=== PATIENT | male | born 1950 | race African-American/Black ===

== ENCOUNTER 2018-01-09 08:56 | Inpatient (IN) | payer MEDICAID ==
[2018-01-09] VITALS (35 sets, daily range): BP systolic 90–166; BP diastolic 60–97
[~2018-01-09] VITALS: Ht 180.3 cm; Wt 91.2 kg
[~2018-01-09 08:56] MED LIST: ASPI-1159 PO; ATOR40TA70 PO; FERR-43 PO; GABA-531 PO; HYDR-523 PO; INDO-53 PO; LOSA50TA20 PO; NAPR-681 PO; TAMS0.4C31 PO
[2018-01-09 10:01] LABS: BASOPHILS % 0.6 % (0.0-2.0); EOSINOPHILS % 0.7 % (0.0-5.0); HEMATOCRIT. 38.7 % (42.0-52.0); HEMOGLOBIN. 12.4 g/dL (14.0-18.0); LYMPHOCYTES % 11.3 % (20.0-50.0); MEAN CORPUSCULAR HEMOGLOBIN 28.6 pg (28.0-32.0); NEUTROPHILS % 79.4 % (40.0-76.0); PLATELET 209 x1000/uL (130-400); RED BLOOD CELL COUNT 4.35 mill/uL (4.7-6.1); RED CELL DISTRIBUTION WIDTH 14.7 % (11.6-14.6)
[2018-01-09 10:07] LABS: CHLORIDE 112 mEq/L (98-107)
[2018-01-09 11:10] LABS: INR 1.1
[2018-01-09] MEDS ORDERED: PHENYTOIN SODIUM 1,000 MG in SODIUM CHLORIDE 0.9% 100 ML IV ONE (11:15)
[2018-01-09] MEDS ORDERED: NICARDIPINE 50 MG in SODIUM CHLORIDE 0.9% 230 ML IV PRN ×3 (11:30→13:45)
[2018-01-09] MEDS ORDERED: DEXTROSE 5% WATER 1,000 ML IV SCH (11:30)
[2018-01-09] MEDS ORDERED: LORAZEPAM 2MG/ML CPJ IV PRN (11:30)
[2018-01-09 12:44] LABS: CLARITY URINE CLEAR (CLEAR); COLOR URINE YELLOW (YELLOW); KETONES URINE NEGATIVE (NEGATIVE); LEUKOCYTE ESTERASE URINE NEGATIVE (NEGATIVE); NITRITE URINE NEGATIVE (NEGATIVE); OCCULT BLOOD URINE NEGATIVE (NEGATIVE); PH URINE 5.5 (4.5-8.0); PROTEIN URINE 2+ (NEGATIVE); SPECIFIC GRAVITY URINE 1.023 (1.005-1.030)
[2018-01-09 13:06] LABS: *BENZODIAZEPINES SCREEN URINE PRESUMTIVE POSITIVE (NEGATIVE); *COCAINE SCREEN URINE NEGATIVE (NEGATIVE); METHADONE URINE SCREEN NEGATIVE (NEGATIVE); OPIATES URINE SCREEN NEGATIVE (NEGATIVE)
[2018-01-09 13:07] LABS: *AMPHETAMINES SCREEN URINE NEGATIVE (NEGATIVE); *BARBITURATES SCREEN URINE NEGATIVE (NEGATIVE); CANNABINOID URINE SCREEN NEGATIVE (NEGATIVE); PHENCYCLIDINE URINE SCREEN NEGATIVE (NEGATIVE)
[2018-01-09] MEDS ORDERED: CHOL100044 PO (14:07)
[2018-01-09] MEDS ORDERED: LOSA100T14 PO (14:07)
[2018-01-09] MEDS ORDERED: ETOMIDATE 2MG/ML 10ML VIAL IV ONE (14:13)
[2018-01-09] MEDS ORDERED: SUCCINYLCHOLINE CHLORIDE 200MG/10ML VIAL IV ONE (14:13)
[2018-01-09] MEDS ORDERED: IPRATROPIUM/ALBUTEROL 0.5-3(2.5)MG/3ML NEB HHN PRN (15:00)
[2018-01-09] MEDS ORDERED: NOREPINEPHRINE 16 MG in DEXT 5% WATER 234 ML IV PRN (15:00)
[2018-01-09 15:52] LABS: BG BASE EXCESS 0.4 mmol/L (-2.0-2.0); BG CARBOXYHEMOGLOBIN 0.5 % (0.5-1.5); BG DEOXYHEMOGLOBIN 0.4 % (0.0-5.0); BG FRACTION INSPIRED OXYGEN 100; BG HCO3 ACT 28.6 mmol/L (22.0-26.0); BG METHEMOGLOBIN 0.4 % (0.0-1.5); BG OXYGEN SATURATION 99.6 % (92.0-98.5); BG OXYHEMOGLOBIN 98.7 % (94.0-97.0); BG PCO2 62.6 mmHg (35.0-45.0); BG PH 7.277 (7.350-7.450); BG PO2 382.6 mmHg (75.0-100.0); BG SAMPLE SITE LEFT RADIAL; BG TIDAL VOLUME(mL) 500 mL; BG TOTAL HEMOGLOBIN 12.9 g/dL (12.0-18.0); BG VENT MODE VENT - A/C; BG VENT RATE 12 set
[2018-01-09] MEDS: PROPOFOL 10MG/ML 100ML 100 ML IV PRN ×2 (16:16→20:57)
[2018-01-09] MEDS: DEXT 5%/LACTATED RINGERS 1,000 ML IV SCH (16:18)
[2018-01-09] MEDS: CEFEPIME 2,000 MG in DEXT 5% WATER 100 ML IV SCH (16:28)
[2018-01-09] MEDS: BLOOD SUGAR DIAGNOSTIC STRIP TEST SCH ×2 (16:30→20:58)
[2018-01-09] MEDS ORDERED: DEXTROSE 50% WATER 50ML SYRINGE IV PRN (16:30)
[2018-01-09] MEDS: BUDESONIDE 0.5MG/2ML NEB HHN SCH (16:48)
[2018-01-09] MEDS: IPRATROPIUM/ALBUTEROL 0.5-3(2.5)MG/3ML NEB HHN SCH ×2 (16:49→21:23)
[2018-01-09] MEDS: INSULIN LISPRO 100 UNITS/ML SUBCUT SCH ×2 (17:00→21:08)
[2018-01-09] MEDS: DEXAMETHASONE 4MG/ML 1ML VIAL IV SCH (17:48)
[2018-01-09] MEDS: METRONIDAZOLE 500 MG PREMIX 100 ML IV SCH ×2 (17:48→21:09)
[2018-01-09] MEDS: NICARDIPINE 100 MG in SODIUM CHLORIDE 0.9% 60 ML IV PRN (19:49)
[2018-01-09] MEDS: PHENYTOIN SODIUM 100MG/2ML VIAL IV SCH (21:22)
[2018-01-10] VITALS (95 sets, daily range): BP systolic 104–148; BP diastolic 48–84
[2018-01-10] MEDS: DEXAMETHASONE 4MG/ML 1ML VIAL IV SCH ×5 (00:07→23:41)
[2018-01-10] MEDS: PROPOFOL 10MG/ML 100ML 100 ML IV PRN (00:08)
[2018-01-10] MEDS: IPRATROPIUM/ALBUTEROL 0.5-3(2.5)MG/3ML NEB HHN SCH ×3 (02:40→20:28)
[2018-01-10] MEDS: NICARDIPINE 100 MG in SODIUM CHLORIDE 0.9% 60 ML IV PRN ×2 (04:41→17:10)
[2018-01-10] MEDS: METRONIDAZOLE 500 MG PREMIX 100 ML IV SCH ×3 (05:03→21:57)
[2018-01-10] MEDS: CEFEPIME 2,000 MG in DEXT 5% WATER 100 ML IV SCH ×2 (05:04→17:40)
[2018-01-10] MEDS: PHENYTOIN SODIUM 100MG/2ML VIAL IV SCH ×3 (05:04→21:57)
[2018-01-10 05:20] LABS: HEMATOCRIT. 35.4 % (42.0-52.0); HEMOGLOBIN. 11.6 g/dL (14.0-18.0); MEAN CORPUSCULAR VOLUME 88.4 fL (80.0-94.0); MEAN PLATELET VOLUME 9.5 fl (7.4-10.4); PLATELET 223 x1000/uL (130-400); RED BLOOD CELL COUNT 4.01 mill/uL (4.7-6.1); RED CELL DISTRIBUTION WIDTH 14.6 % (11.6-14.6)
[2018-01-10 05:30] LABS: CHLORIDE 108 mEq/L (98-107)
[2018-01-10] MEDS: BLOOD SUGAR DIAGNOSTIC STRIP TEST SCH ×4 (06:00→21:57)
[2018-01-10] MEDS: INSULIN LISPRO 100 UNITS/ML SUBCUT SCH ×4 (06:02→21:58)
[2018-01-10] MEDS: BUDESONIDE 0.5MG/2ML NEB HHN SCH ×2 (08:00→20:27)
[2018-01-10] MEDS: PANTOPRAZOLE SODIUM 40 MG/VIAL IV SCH (08:30)
[2018-01-10 08:54] LABS: PLATELET ESTIMATE NORMAL
[2018-01-10] MEDS: DEXT 5%/LACTATED RINGERS 1,000 ML IV SCH ×2 (10:34→23:42)
[2018-01-10] MEDS: INSULIN GLARGINE UD 100 UNITS/ML SYR SUBCUT SCH ×2 (10:53→21:59)
[2018-01-10 11:02] LABS: BG BASE EXCESS 0.4 mmol/L (-2.0-2.0); BG CARBOXYHEMOGLOBIN 0.3 % (0.5-1.5); BG DEOXYHEMOGLOBIN 1.9 % (0.0-5.0); BG FRACTION INSPIRED OXYGEN 50; BG HCO3 ACT 25.2 mmol/L (22.0-26.0); BG METHEMOGLOBIN 1.2 % (0.0-1.5); BG OXYGEN SATURATION 98.1 % (92.0-98.5); BG OXYHEMOGLOBIN 96.6 % (94.0-97.0); BG PCO2 41.3 mmHg (35.0-45.0); BG PH 7.404 (7.350-7.450); BG PO2 128.6 mmHg (75.0-100.0); BG SAMPLE SITE LEFT RADIAL; BG TIDAL VOLUME(mL) 500 mL; BG VENT MODE VENT - A/C; BG VENT RATE 16 set
[2018-01-10] MEDS: MORPHINE SULFATE 4 MG/ML CPJ (NOT FOR IM USE) IV PRN ×2 (11:10→23:22)
[2018-01-11] VITALS (87 sets, daily range): BP systolic 97–150; BP diastolic 58–121
[2018-01-11] MEDS: IPRATROPIUM/ALBUTEROL 0.5-3(2.5)MG/3ML NEB HHN SCH ×4 (01:51→19:58)
[2018-01-11 05:30] LABS: HEMATOCRIT. 33.8 % (42.0-52.0); HEMOGLOBIN. 11.1 g/dL (14.0-18.0); MEAN CORPUSCULAR HEMOGLOBIN 29.1 pg (28.0-32.0); MEAN CORPUSCULAR VOLUME 88.5 fL (80.0-94.0); MEAN PLATELET VOLUME 9.4 fl (7.4-10.4); PLATELET 236 x1000/uL (130-400); RED BLOOD CELL COUNT 3.82 mill/uL (4.7-6.1); RED CELL DISTRIBUTION WIDTH 14.8 % (11.6-14.6)
[2018-01-11] MEDS: PHENYTOIN SODIUM 100MG/2ML VIAL IV SCH ×3 (05:31→21:17)
[2018-01-11] MEDS: DEXAMETHASONE 4MG/ML 1ML VIAL IV SCH ×4 (05:31→23:45)
[2018-01-11] MEDS: CEFEPIME 2,000 MG in DEXT 5% WATER 100 ML IV SCH ×2 (05:32→17:11)
[2018-01-11] MEDS: METRONIDAZOLE 500 MG PREMIX 100 ML IV SCH ×3 (05:32→21:23)
[2018-01-11 05:34] LABS: CHLORIDE 110 mEq/L (98-107)
[2018-01-11] MEDS: BLOOD SUGAR DIAGNOSTIC STRIP TEST SCH ×4 (05:46→21:13)
[2018-01-11] MEDS ORDERED: BISACODYL 10MG SUPP PR SCH (06:45)
[2018-01-11] MEDS: INSULIN LISPRO 100 UNITS/ML SUBCUT SCH ×4 (06:54→21:22)
[2018-01-11 07:44] LABS: BG BASE EXCESS 0.2 mmol/L (-2.0-2.0); BG DEOXYHEMOGLOBIN 3.7 % (0.0-5.0); BG HCO3 ACT 25.6 mmol/L (22.0-26.0); BG METHEMOGLOBIN 0.2 % (0.0-1.5); BG OXYGEN SATURATION 96.3 % (92.0-98.5); BG OXYHEMOGLOBIN 96.1 % (94.0-97.0); BG PCO2 44.8 mmHg (35.0-45.0); BG PH 7.375 (7.350-7.450); BG PO2 86.8 mmHg (75.0-100.0); BG SAMPLE SITE RIGHT RADIAL; BG TIDAL VOLUME(mL) 500 mL; BG TOTAL HEMOGLOBIN 12.2 g/dL (12.0-18.0); BG VENT MODE VENT - A/C; BG VENT RATE 16 set
[2018-01-11] MEDS: NICARDIPINE 100 MG in SODIUM CHLORIDE 0.9% 60 ML IV PRN ×2 (07:49→23:17)
[2018-01-11] MEDS: PANTOPRAZOLE SODIUM 40 MG/VIAL IV SCH (08:38)
[2018-01-11 09:02] LABS: PLATELET ESTIMATE NORMAL
[2018-01-11] MEDS: INSULIN GLARGINE UD 100 UNITS/ML SYR SUBCUT SCH ×2 (10:00→21:23)
[2018-01-11] MEDS: BUDESONIDE 0.5MG/2ML NEB HHN SCH (19:57)
[2018-01-11] MEDS: MORPHINE SULFATE 4 MG/ML CPJ (NOT FOR IM USE) IV PRN ×2 (20:08→23:46)
[2018-01-11] MEDS: DEXT 5%/LACTATED RINGERS 1,000 ML IV SCH (23:46)
[2018-01-12] VITALS (93 sets, daily range): BP systolic 106–156; BP diastolic 31–103
[2018-01-12] MEDS: IPRATROPIUM/ALBUTEROL 0.5-3(2.5)MG/3ML NEB HHN SCH ×4 (02:36→20:39)
[2018-01-12 05:24] LABS: HEMATOCRIT. 36.1 % (42.0-52.0); HEMOGLOBIN. 11.7 g/dL (14.0-18.0); MEAN CORPUSCULAR HEMOGLOBIN 28.6 pg (28.0-32.0); MEAN CORPUSCULAR VOLUME 88.6 fL (80.0-94.0); MEAN PLATELET VOLUME 9.4 fl (7.4-10.4); PLATELET 235 x1000/uL (130-400); RED BLOOD CELL COUNT 4.08 mill/uL (4.7-6.1); RED CELL DISTRIBUTION WIDTH 14.6 % (11.6-14.6)
[2018-01-12] MEDS: PHENYTOIN SODIUM 100MG/2ML VIAL IV SCH ×3 (05:24→22:13)
[2018-01-12] MEDS: DEXAMETHASONE 4MG/ML 1ML VIAL IV SCH ×3 (05:24→18:07)
[2018-01-12] MEDS: CEFEPIME 2,000 MG in DEXT 5% WATER 100 ML IV SCH ×2 (05:25→18:07)
[2018-01-12] MEDS: BLOOD SUGAR DIAGNOSTIC STRIP TEST SCH ×4 (05:41→21:00)
[2018-01-12 05:45] LABS: CHLORIDE 114 mEq/L (98-107)
[2018-01-12] MEDS: INSULIN LISPRO 100 UNITS/ML SUBCUT SCH ×4 (06:44→21:00)
[2018-01-12] MEDS: METRONIDAZOLE 500 MG PREMIX 100 ML IV SCH ×3 (06:51→22:12)
[2018-01-12] MEDS: NICARDIPINE 100 MG in SODIUM CHLORIDE 0.9% 60 ML IV PRN ×3 (07:56→22:17)
[2018-01-12] MEDS: PANTOPRAZOLE SODIUM 40 MG/VIAL IV SCH ×2 (07:56→22:13)
[2018-01-12 08:25] LABS: BG BASE EXCESS 0.6 mmol/L (-2.0-2.0); BG CARBOXYHEMOGLOBIN 0.7 % (0.5-1.5); BG DEOXYHEMOGLOBIN 3.8 % (0.0-5.0); BG FRACTION INSPIRED OXYGEN 30; BG HCO3 ACT 24.9 mmol/L (22.0-26.0); BG METHEMOGLOBIN 0.3 % (0.0-1.5); BG OXYGEN SATURATION 96.2 % (92.0-98.5); BG OXYHEMOGLOBIN 95.2 % (94.0-97.0); BG PCO2 38.9 mmHg (35.0-45.0); BG PH 7.424 (7.350-7.450); BG PO2 84.2 mmHg (75.0-100.0); BG SAMPLE SITE RIGHT RADIAL; BG TIDAL VOLUME(mL) 500 mL; BG TOTAL HEMOGLOBIN 12.4 g/dL (12.0-18.0); BG VENT MODE VENT - A/C; BG VENT RATE 156 set
[2018-01-12] MEDS: BUDESONIDE 0.5MG/2ML NEB HHN SCH (09:05)
[2018-01-12] MEDS: DEXT 5%/LACTATED RINGERS 1,000 ML IV SCH (10:55)
[2018-01-12] MEDS: INSULIN GLARGINE UD 100 UNITS/ML SYR SUBCUT SCH ×2 (10:57→22:15)
[2018-01-12 11:55] LABS: PLATELET ESTIMATE NORMAL
[2018-01-12 15:36] LABS: BG BASE EXCESS -0.1 mmol/L (-2.0-2.0); BG CARBOXYHEMOGLOBIN 0.3 % (0.5-1.5); BG CPAP (cmH2O) 0 cm(H2O); BG DEOXYHEMOGLOBIN 4.9 % (0.0-5.0); BG HCO3 ACT 25.2 mmol/L (22.0-26.0); BG METHEMOGLOBIN 0.2 % (0.0-1.5); BG OXYGEN SATURATION 95.1 % (92.0-98.5); BG OXYHEMOGLOBIN 94.6 % (94.0-97.0); BG PCO2 43.5 mmHg (35.0-45.0); BG PO2 78.5 mmHg (75.0-100.0); BG SAMPLE SITE RIGHT RADIAL; BG TOTAL HEMOGLOBIN 12.7 g/dL (12.0-18.0); BG VENT MODE VENT - CPAP
[2018-01-13] VITALS (80 sets, daily range): BP systolic 101–153; BP diastolic 32–85
[2018-01-13] MEDS: DEXAMETHASONE 4MG/ML 1ML VIAL IV SCH ×4 (01:02→19:35)
[2018-01-13] MEDS: IPRATROPIUM/ALBUTEROL 0.5-3(2.5)MG/3ML NEB HHN SCH ×4 (02:01→20:50)
[2018-01-13] MEDS: DEXT 5%/LACTATED RINGERS 1,000 ML IV SCH ×2 (03:35→20:15)
[2018-01-13] MEDS: NICARDIPINE 100 MG in SODIUM CHLORIDE 0.9% 60 ML IV PRN ×2 (04:51→15:37)
[2018-01-13 05:40] LABS: HEMATOCRIT. 35.7 % (42.0-52.0); HEMOGLOBIN. 11.7 g/dL (14.0-18.0); MEAN CORPUSCULAR VOLUME 88.2 fL (80.0-94.0); MEAN PLATELET VOLUME 9.2 fl (7.4-10.4); PLATELET 231 x1000/uL (130-400); RED BLOOD CELL COUNT 4.04 mill/uL (4.7-6.1); RED CELL DISTRIBUTION WIDTH 14.8 % (11.6-14.6)
[2018-01-13] MEDS: CEFEPIME 2,000 MG in DEXT 5% WATER 100 ML IV SCH ×2 (05:44→19:35)
[2018-01-13] MEDS: METRONIDAZOLE 500 MG PREMIX 100 ML IV SCH ×3 (05:44→21:48)
[2018-01-13] MEDS: PHENYTOIN SODIUM 100MG/2ML VIAL IV SCH ×3 (05:45→21:47)
[2018-01-13 05:50] LABS: CHLORIDE 116 mEq/L (98-107)
[2018-01-13] MEDS: BLOOD SUGAR DIAGNOSTIC STRIP TEST SCH ×4 (05:53→21:35)
[2018-01-13] MEDS: INSULIN LISPRO 100 UNITS/ML SUBCUT SCH ×4 (05:55→21:47)
[2018-01-13] MEDS ORDERED: BISACODYL 10MG SUPP PR PRN (08:00)
[2018-01-13 08:24] LABS: BG BASE EXCESS -2.3 mmol/L (-2.0-2.0); BG CARBOXYHEMOGLOBIN 0.9 % (0.5-1.5); BG DEOXYHEMOGLOBIN 3.5 % (0.0-5.0); BG FRACTION INSPIRED OXYGEN 30; BG HCO3 ACT 22.2 mmol/L (22.0-26.0); BG METHEMOGLOBIN 0.3 % (0.0-1.5); BG OXYGEN SATURATION 96.5 % (92.0-98.5); BG OXYHEMOGLOBIN 95.3 % (94.0-97.0); BG PCO2 37.5 mmHg (35.0-45.0); BG PO2 89.1 mmHg (75.0-100.0); BG SAMPLE SITE RIGHT RADIAL; BG TIDAL VOLUME(mL) 500 mL; BG TOTAL HEMOGLOBIN 13.7 g/dL (12.0-18.0); BG VENT MODE VENT - A/C; BG VENT RATE 12 set
[2018-01-13] MEDS: PANTOPRAZOLE SODIUM 40 MG/VIAL IV SCH ×2 (09:07→21:46)
[2018-01-13] MEDS: INSULIN GLARGINE UD 100 UNITS/ML SYR SUBCUT SCH ×2 (09:09→21:49)
[2018-01-13 09:51] LABS: PLATELET ESTIMATE NORMAL
[2018-01-13 14:51] LABS: BG BASE EXCESS 0.7 mmol/L (-2.0-2.0); BG CARBOXYHEMOGLOBIN 0.3 % (0.5-1.5); BG DEOXYHEMOGLOBIN 4.2 % (0.0-5.0); BG FRACTION INSPIRED OXYGEN 30; BG HCO3 ACT 26.3 mmol/L (22.0-26.0); BG METHEMOGLOBIN 0.6 % (0.0-1.5); BG OXYGEN SATURATION 95.8 % (92.0-98.5); BG OXYHEMOGLOBIN 94.9 % (94.0-97.0); BG PCO2 45.9 mmHg (35.0-45.0); BG PH 7.376 (7.350-7.450); BG PO2 86.8 mmHg (75.0-100.0); BG PRESSURE SUPPORT 8; BG SAMPLE SITE RIGHT RADIAL; BG TOTAL HEMOGLOBIN 12.7 g/dL (12.0-18.0); BG VENT MODE VENT - CPAP
[2018-01-13] MEDS ORDERED: LIDOCAINE HCL/PF 1% 2ML VIAL ONE (15:00)
[2018-01-14] VITALS (67 sets, daily range): BP systolic 107–164; BP diastolic 62–94
[2018-01-14] MEDS: DEXAMETHASONE 4MG/ML 1ML VIAL IV SCH ×5 (00:58→23:43)
[2018-01-14 05:34] LABS: HEMATOCRIT. 38.7 % (42.0-52.0); HEMOGLOBIN. 12.6 g/dL (14.0-18.0); MEAN CORPUSCULAR HEMOGLOBIN 28.9 pg (28.0-32.0); MEAN CORPUSCULAR VOLUME 88.9 fL (80.0-94.0); MEAN PLATELET VOLUME 9.1 fl (7.4-10.4); PLATELET 230 x1000/uL (130-400); RED BLOOD CELL COUNT 4.35 mill/uL (4.7-6.1); RED CELL DISTRIBUTION WIDTH 14.5 % (11.6-14.6)
[2018-01-14] MEDS: BLOOD SUGAR DIAGNOSTIC STRIP TEST SCH ×4 (05:39→21:53)
[2018-01-14] MEDS: CEFEPIME 2,000 MG in DEXT 5% WATER 100 ML IV SCH ×2 (05:42→17:10)
[2018-01-14] MEDS: PHENYTOIN SODIUM 100MG/2ML VIAL IV SCH ×3 (05:42→22:04)
[2018-01-14] MEDS: METRONIDAZOLE 500 MG PREMIX 100 ML IV SCH ×3 (05:42→22:04)
[2018-01-14] MEDS: INSULIN LISPRO 100 UNITS/ML SUBCUT SCH ×4 (06:06→22:05)
[2018-01-14 06:10] LABS: CHLORIDE 116 mEq/L (98-107)
[2018-01-14 07:34] LABS: BG BASE EXCESS 2.2 mmol/L (-2.0-2.0); BG CARBOXYHEMOGLOBIN 0.9 % (0.5-1.5); BG DEOXYHEMOGLOBIN 4.1 % (0.0-5.0); BG METHEMOGLOBIN 0.4 % (0.0-1.5); BG OXYGEN SATURATION 95.8 % (92.0-98.5); BG OXYHEMOGLOBIN 94.6 % (94.0-97.0); BG PCO2 42.9 mmHg (35.0-45.0); BG PH 7.417 (7.350-7.450); BG PO2 80.8 mmHg (75.0-100.0); BG SAMPLE SITE RIGHT RADIAL; BG TOTAL HEMOGLOBIN 12.8 g/dL (12.0-18.0); BG VENT MODE NASAL CANNULA
[2018-01-14] MEDS: PANTOPRAZOLE SODIUM 40 MG/VIAL IV SCH ×2 (07:59→22:04)
[2018-01-14] MEDS: IPRATROPIUM/ALBUTEROL 0.5-3(2.5)MG/3ML NEB HHN SCH ×3 (08:25→20:19)
[2018-01-14] MEDS: INSULIN GLARGINE UD 100 UNITS/ML SYR SUBCUT SCH ×2 (10:25→22:05)
[2018-01-14] MEDS ORDERED: HYDRALAZINE 20MG/ML VIAL IV PRN (10:30)
[2018-01-14 10:34] LABS: PLATELET ESTIMATE NORMAL
[2018-01-14] MEDS: NICARDIPINE 100 MG in SODIUM CHLORIDE 0.9% 60 ML IV PRN (11:19)
[2018-01-14] MEDS: LOSARTAN POTASSIUM 100 MG TABLET PO SCH (11:52)
[2018-01-14] MEDS: CLONIDINE 0.1MG TABLET PO PRN (18:07)
[2018-01-14] MEDS: DOCUSATE SODIUM 100MG CAPSULE PO SCH (18:07)
[2018-01-14] MEDS: AMLODIPINE 5MG TABLET PO SCH (22:04)
[2018-01-14] MEDS: DEXT 5%/LACTATED RINGERS 1,000 ML IV SCH (22:04)
[2018-01-15] VITALS (60 sets, daily range): BP systolic 100–182; BP diastolic 54–112
[2018-01-15] MEDS: IPRATROPIUM/ALBUTEROL 0.5-3(2.5)MG/3ML NEB HHN SCH ×3 (02:21→21:19)
[2018-01-15] MEDS: BLOOD SUGAR DIAGNOSTIC STRIP TEST SCH ×4 (05:24→20:07)
[2018-01-15] MEDS: DEXAMETHASONE 4MG/ML 1ML VIAL IV SCH ×3 (05:28→18:48)
[2018-01-15] MEDS: PHENYTOIN SODIUM 100MG/2ML VIAL IV SCH ×3 (05:28→21:34)
[2018-01-15] MEDS: CEFEPIME 2,000 MG in DEXT 5% WATER 100 ML IV SCH (05:28)
[2018-01-15] MEDS: METRONIDAZOLE 500 MG PREMIX 100 ML IV SCH (05:28)
[2018-01-15] MEDS: CLONIDINE 0.1MG TABLET PO PRN ×2 (05:29→20:06)
[2018-01-15 05:49] LABS: CHLORIDE 109 mEq/L (98-107)
[2018-01-15 06:00] LABS: HEMOGLOBIN. 11.8 g/dL (14.0-18.0); MEAN CORPUSCULAR HEMOGLOBIN 28.8 pg (28.0-32.0); MEAN PLATELET VOLUME 8.5 fl (7.4-10.4); PLATELET 205 x1000/uL (130-400); RED BLOOD CELL COUNT 4.09 mill/uL (4.7-6.1); RED CELL DISTRIBUTION WIDTH 14.3 % (11.6-14.6)
[2018-01-15] MEDS: INSULIN LISPRO 100 UNITS/ML SUBCUT SCH ×4 (07:00→20:28)
[2018-01-15 07:53] LABS: NUCLEATED RED BLOOD CELLS 1 /100 WBC; PLATELET ESTIMATE NORMAL
[2018-01-15] MEDS: AMLODIPINE 5MG TABLET PO SCH ×2 (08:31→20:07)
[2018-01-15] MEDS: DOCUSATE SODIUM 100MG CAPSULE PO SCH ×2 (08:31→18:48)
[2018-01-15] MEDS: PANTOPRAZOLE SODIUM 40 MG/VIAL IV SCH ×2 (08:31→20:06)
[2018-01-15] MEDS: LOSARTAN POTASSIUM 100 MG TABLET PO SCH (08:31)
[2018-01-15] MEDS: INSULIN GLARGINE UD 100 UNITS/ML SYR SUBCUT SCH ×2 (10:44→21:35)
[2018-01-15] MEDS: LEVOFLOXACIN 250MG TABLET PO SCH (13:44)
[2018-01-15] MEDS: RISPERIDONE 1MG TABLET PO SCH (20:07)
[2018-01-16] VITALS (7 sets, daily range): BP systolic 125–177; BP diastolic 60–99
[2018-01-16] MEDS: DEXAMETHASONE 4MG/ML 1ML VIAL IV SCH ×4 (00:26→17:54)
[2018-01-16] MEDS: IPRATROPIUM/ALBUTEROL 0.5-3(2.5)MG/3ML NEB HHN SCH ×4 (02:36→21:06)
[2018-01-16] MEDS: PHENYTOIN SODIUM 100MG/2ML VIAL IV SCH ×3 (06:20→21:54)
[2018-01-16] MEDS: BLOOD SUGAR DIAGNOSTIC STRIP TEST SCH ×4 (06:21→21:55)
[2018-01-16 07:53] LABS: BASOPHILS % 0.1 % (0.0-2.0); HEMATOCRIT. 36.3 % (42.0-52.0); HEMOGLOBIN. 11.8 g/dL (14.0-18.0); LYMPHOCYTES % 7.6 % (20.0-50.0); MEAN CORPUSCULAR HEMOGLOBIN 28.5 pg (28.0-32.0); MEAN CORPUSCULAR VOLUME 87.5 fL (80.0-94.0); MEAN PLATELET VOLUME 8.7 fl (7.4-10.4); MONOCYTES % 10.7 % (2.0-8.0); NEUTROPHILS % 81.6 % (40.0-76.0); PLATELET 174 x1000/uL (130-400); RED BLOOD CELL COUNT 4.15 mill/uL (4.7-6.1); RED CELL DISTRIBUTION WIDTH 14.1 % (11.6-14.6)
[2018-01-16 08:37] LABS: CHLORIDE 106 mEq/L (98-107)
[2018-01-16] MEDS: RISPERIDONE 1MG TABLET PO SCH ×2 (09:04→21:55)
[2018-01-16] MEDS: PANTOPRAZOLE SODIUM 40 MG/VIAL IV SCH (09:04)
[2018-01-16] MEDS: DOCUSATE SODIUM 100MG CAPSULE PO SCH ×2 (09:05→17:55)
[2018-01-16] MEDS: LOSARTAN POTASSIUM 100 MG TABLET PO SCH (09:05)
[2018-01-16] MEDS: AMLODIPINE 5MG TABLET PO SCH ×2 (09:05→21:55)
[2018-01-16] MEDS: INSULIN LISPRO 100 UNITS/ML SUBCUT SCH ×4 (09:16→22:06)
[2018-01-16] MEDS ORDERED: IOHEXOL-350 100 ML BOTTLE ONE (10:19)
[2018-01-16] MEDS: INSULIN GLARGINE UD 100 UNITS/ML SYR SUBCUT SCH ×2 (11:06→22:06)
[2018-01-16] MEDS: LEVOFLOXACIN 250MG TABLET PO SCH (12:40)
[2018-01-16 20:35] LABS: HEMATOCRIT. 34.8 % (42.0-52.0); HEMOGLOBIN. 11.4 g/dL (14.0-18.0); MEAN CORPUSCULAR HEMOGLOBIN 28.7 pg (28.0-32.0); MEAN CORPUSCULAR VOLUME 87.6 fL (80.0-94.0); MEAN PLATELET VOLUME 9.3 fl (7.4-10.4); PLATELET 166 x1000/uL (130-400); RED BLOOD CELL COUNT 3.97 mill/uL (4.7-6.1); RED CELL DISTRIBUTION WIDTH 14.3 % (11.6-14.6)
[2018-01-16 21:01] LABS: PLATELET ESTIMATE NORMAL
[2018-01-16] MEDS: METOPROLOL TARTRATE 25MG TABLET PO SCH (21:54)
[2018-01-17 00:18] VITALS: BP 121/77
[2018-01-17] MEDS: IPRATROPIUM/ALBUTEROL 0.5-3(2.5)MG/3ML NEB HHN SCH ×4 (02:10→21:08)
[2018-01-17] MEDS: DEXAMETHASONE 4MG/ML 1ML VIAL IV SCH ×4 (02:10→17:31)
[2018-01-17 04:42] VITALS: BP 158/91
[2018-01-17] MEDS: PHENYTOIN SODIUM 100MG/2ML VIAL IV SCH ×3 (06:25→22:18)
[2018-01-17] MEDS: BLOOD SUGAR DIAGNOSTIC STRIP TEST SCH ×4 (06:30→21:00)
[2018-01-17 07:18] LABS: HEMATOCRIT. 34.6 % (42.0-52.0); HEMOGLOBIN. 11.4 g/dL (14.0-18.0); MEAN CORPUSCULAR HEMOGLOBIN 28.8 pg (28.0-32.0); MEAN CORPUSCULAR VOLUME 87.5 fL (80.0-94.0); MEAN PLATELET VOLUME 9.2 fl (7.4-10.4); PLATELET 152 x1000/uL (130-400); RED BLOOD CELL COUNT 3.95 mill/uL (4.7-6.1)
[2018-01-17] MEDS: INSULIN LISPRO 100 UNITS/ML SUBCUT SCH ×4 (07:50→22:49)
[2018-01-17 08:00] VITALS: BP 168/92
[2018-01-17] MEDS: LOSARTAN POTASSIUM 100 MG TABLET PO SCH (09:19)
[2018-01-17] MEDS: DOCUSATE SODIUM 100MG CAPSULE PO SCH ×2 (09:19→17:31)
[2018-01-17] MEDS: AMLODIPINE 5MG TABLET PO SCH ×2 (09:19→21:00)
[2018-01-17] MEDS: METOPROLOL TARTRATE 25MG TABLET PO SCH ×2 (09:19→21:00)
[2018-01-17] MEDS: RISPERIDONE 1MG TABLET PO SCH ×2 (09:19→22:18)
[2018-01-17] MEDS: INSULIN GLARGINE UD 100 UNITS/ML SYR SUBCUT SCH ×2 (10:08→22:50)
[2018-01-17 12:00] VITALS: BP 129/68
[2018-01-17] MEDS: LEVOFLOXACIN 250MG TABLET PO SCH (12:24)
[2018-01-17 16:00] VITALS: BP 129/75
[2018-01-17 17:59] LABS: PLATELET ESTIMATE NORMAL
[2018-01-17 20:00] VITALS: BP 106/73
[2018-01-18] VITALS: BP 112/77
[2018-01-18] MEDS: DEXAMETHASONE 4MG/ML 1ML VIAL IV SCH ×4 (01:50→17:30)
[2018-01-18] MEDS: IPRATROPIUM/ALBUTEROL 0.5-3(2.5)MG/3ML NEB HHN SCH ×4 (01:54→21:26)
[2018-01-18 04:22] VITALS: BP 110/71
[2018-01-18] MEDS: PHENYTOIN SODIUM 100MG/2ML VIAL IV SCH ×3 (06:05→23:12)
[2018-01-18] MEDS: BLOOD SUGAR DIAGNOSTIC STRIP TEST SCH ×4 (06:24→20:49)
[2018-01-18] MEDS: INSULIN LISPRO 100 UNITS/ML SUBCUT SCH ×4 (07:50→20:57)
[2018-01-18 08:00] VITALS: BP 122/80
[2018-01-18] MEDS: RISPERIDONE 1MG TABLET PO SCH ×2 (10:15→20:49)
[2018-01-18] MEDS: DOCUSATE SODIUM 100MG CAPSULE PO SCH ×2 (10:15→17:30)
[2018-01-18] MEDS: INSULIN GLARGINE UD 100 UNITS/ML SYR SUBCUT SCH ×2 (10:26→23:12)
[2018-01-18] MEDS: AMLODIPINE 5MG TABLET PO SCH ×2 (11:16→20:56)
[2018-01-18] MEDS: LOSARTAN POTASSIUM 100 MG TABLET PO SCH (11:16)
[2018-01-18] MEDS: METOPROLOL TARTRATE 25MG TABLET PO SCH ×2 (11:16→20:56)
[2018-01-18 12:00] VITALS: BP 113/6
[2018-01-18 16:00] VITALS: BP 113/68
[2018-01-18 20:00] VITALS: BP 102/64
[2018-01-19] VITALS: BP 129/73
[2018-01-19] MEDS: DEXAMETHASONE 4MG/ML 1ML VIAL IV SCH ×2 (00:37→06:44)
[2018-01-19] MEDS: IPRATROPIUM/ALBUTEROL 0.5-3(2.5)MG/3ML NEB HHN SCH ×4 (03:01→21:29)
[2018-01-19 04:00] VITALS: BP 118/68
[2018-01-19] MEDS: PHENYTOIN SODIUM 100MG/2ML VIAL IV SCH (06:44)
[2018-01-19] MEDS: BLOOD SUGAR DIAGNOSTIC STRIP TEST SCH ×4 (06:44→21:00)
[2018-01-19] MEDS: INSULIN LISPRO 100 UNITS/ML SUBCUT SCH ×4 (06:55→21:00)
[2018-01-19 07:59] VITALS: BP 130/79
[2018-01-19] MEDS: LOSARTAN POTASSIUM 100 MG TABLET PO SCH (09:09)
[2018-01-19] MEDS: DOCUSATE SODIUM 100MG CAPSULE PO SCH ×2 (09:09→17:34)
[2018-01-19] MEDS: AMLODIPINE 5MG TABLET PO SCH ×2 (09:09→21:00)
[2018-01-19] MEDS: METOPROLOL TARTRATE 25MG TABLET PO SCH ×2 (09:09→21:00)
[2018-01-19] MEDS: RISPERIDONE 1MG TABLET PO SCH ×2 (09:09→23:03)
[2018-01-19 12:00] VITALS: BP 137/80
[2018-01-19] MEDS: INSULIN GLARGINE UD 100 UNITS/ML SYR SUBCUT SCH ×2 (12:54→23:00)
[2018-01-19] MEDS ORDERED: LORAZEPAM 1MG TABLET PO PRN (13:15)
[2018-01-19 16:00] VITALS: BP 101/56
[2018-01-19] MEDS: PHENYTOIN SODIUM EXTENDED 100MG CAPSULE PO SCH ×2 (17:34→22:22)
[2018-01-19 20:00] VITALS: BP 100/56
[2018-01-20] VITALS: BP 96/47
[2018-01-20] MEDS: IPRATROPIUM/ALBUTEROL 0.5-3(2.5)MG/3ML NEB HHN SCH ×4 (01:57→20:56)
[2018-01-20 04:00] VITALS: BP 100/63
[2018-01-20] MEDS: BLOOD SUGAR DIAGNOSTIC STRIP TEST SCH ×4 (06:34→21:19)
[2018-01-20] MEDS: PHENYTOIN SODIUM EXTENDED 100MG CAPSULE PO SCH ×3 (06:34→21:19)
[2018-01-20] MEDS: INSULIN LISPRO 100 UNITS/ML SUBCUT SCH ×4 (06:44→21:38)
[2018-01-20 07:51] LABS: EOSINOPHILS % 0.4 % (0.0-5.0); HEMATOCRIT. 32.6 % (42.0-52.0); HEMOGLOBIN. 10.6 g/dL (14.0-18.0); LYMPHOCYTES % 17.3 % (20.0-50.0); MEAN CORPUSCULAR HEMOGLOBIN 28.3 pg (28.0-32.0); MEAN CORPUSCULAR VOLUME 87.5 fL (80.0-94.0); MEAN PLATELET VOLUME 9.4 fl (7.4-10.4); MONOCYTES % 12.1 % (2.0-8.0); NEUTROPHILS % 70.2 % (40.0-76.0); PLATELET 151 x1000/uL (130-400); RED BLOOD CELL COUNT 3.73 mill/uL (4.7-6.1)
[2018-01-20 08:00] VITALS: BP 108/64
[2018-01-20 08:05] LABS: CHLORIDE 107 mEq/L (98-107)
[2018-01-20] MEDS: LOSARTAN POTASSIUM 100 MG TABLET PO SCH (09:00)
[2018-01-20] MEDS: AMLODIPINE 5MG TABLET PO SCH (09:00)
[2018-01-20] MEDS: METOPROLOL TARTRATE 25MG TABLET PO SCH ×2 (09:00→21:00)
[2018-01-20] MEDS: DOCUSATE SODIUM 100MG CAPSULE PO SCH ×2 (09:24→17:37)
[2018-01-20] MEDS: RISPERIDONE 1MG TABLET PO SCH ×2 (09:24→21:19)
[2018-01-20] MEDS: INSULIN GLARGINE UD 100 UNITS/ML SYR SUBCUT SCH ×2 (10:12→21:38)
[2018-01-20 12:00] VITALS: BP 102/66
[2018-01-20 16:00] VITALS: BP 94/58
[2018-01-20 19:54] VITALS: BP 116/72
[2018-01-21] VITALS (7 sets, daily range): BP systolic 100–137; BP diastolic 59–73
[2018-01-21] MEDS: IPRATROPIUM/ALBUTEROL 0.5-3(2.5)MG/3ML NEB HHN SCH (01:29)
[2018-01-21] MEDS: PHENYTOIN SODIUM EXTENDED 100MG CAPSULE PO SCH ×2 (06:33→15:22)
[2018-01-21] MEDS: BLOOD SUGAR DIAGNOSTIC STRIP TEST SCH ×2 (06:35→12:53)
[2018-01-21 07:14] LABS: EOSINOPHILS % 0.5 % (0.0-5.0); HEMATOCRIT. 29.7 % (42.0-52.0); HEMOGLOBIN. 9.9 g/dL (14.0-18.0); LYMPHOCYTES % 13.3 % (20.0-50.0); MEAN CORPUSCULAR VOLUME 86.9 fL (80.0-94.0); MEAN PLATELET VOLUME 9.1 fl (7.4-10.4); MONOCYTES % 10.7 % (2.0-8.0); NEUTROPHILS % 75.5 % (40.0-76.0); PLATELET 152 x1000/uL (130-400); RED BLOOD CELL COUNT 3.42 mill/uL (4.7-6.1); RED CELL DISTRIBUTION WIDTH 14.2 % (11.6-14.6)
[2018-01-21 07:15] LABS: CHLORIDE 108 mEq/L (98-107)
[2018-01-21] MEDS: INSULIN LISPRO 100 UNITS/ML SUBCUT SCH ×2 (07:50→12:50)
[2018-01-21] MEDS ORDERED: LOSARTAN POTASSIUM 50 MG TABLET PO SCH (09:00)
[2018-01-21] MEDS ORDERED: LOSARTAN POTASSIUM 100 MG TABLET PO SCH (09:00)
[2018-01-21] MEDS: METOPROLOL TARTRATE 25MG TABLET PO SCH (09:00)
[2018-01-21] MEDS: RISPERIDONE 1MG TABLET PO SCH (09:36)
[2018-01-21] MEDS: DOCUSATE SODIUM 100MG CAPSULE PO SCH (09:36)
[2018-01-21] MEDS: INSULIN GLARGINE UD 100 UNITS/ML SYR SUBCUT SCH (10:00)
[2018-01-21] MEDS ORDERED: PHEN100C4 PO (14:54)
== END 2018-01-21 17:00 | DRG 720 ==
LOC: ER 09:39 → ENRESERV 11:29 → MICUNO 12:09 → EDBEDREQTM 12:11 → EDBEDREQ 12:11 → 6EST 01-15 17:50
PROVIDERS: ADMIT Internal Medicine; ATTEND Internal Medicine
PROC: 5A1955Z Respiratory Ventilation, Greater than 96 Consecutive Hours (ICD-10-PCS; principal; 2018-01-09)
PROC: 0BH17EZ Insertion of Endotracheal Airway into Trachea, Via Natural or Artificial Opening (ICD-10-PCS; 2018-01-09)
PROC: 02HV33Z Insertion of Infusion Device into Superior Vena Cava, Percutaneous Approach (ICD-10-PCS; 2018-01-11)
PROC: B548ZZA Ultrasonography of Superior Vena Cava, Guidance (ICD-10-PCS; 2018-01-11)
PROC: 0D9670Z Drainage of Stomach with Drainage Device, Via Natural or Artificial Opening (ICD-10-PCS; 2018-01-11)
DX: A41.9 Sepsis, unspecified organism (principal); J96.02 Acute respiratory failure with hypercapnia; J69.0 Pneumonitis due to inhalation of food and vomit; G93.41 Metabolic encephalopathy; I61.1 Nontraumatic intracerebral hemorrhage in hemisphere, cortical; I61.5 Nontraumatic intracerebral hemorrhage, intraventricular; E87.0 Hyperosmolality and hypernatremia; E87.2 Acidosis; I82.621 Acute embolism and thrombosis of deep veins of right upper extremity; K56.7 Ileus, unspecified; J44.9 Chronic obstructive pulmonary disease, unspecified; G40.909 Epilepsy, unspecified, not intractable, without status epilepticus; E87.8 Other disorders of electrolyte and fluid balance, not elsewhere classified; J98.11 Atelectasis; E78.5 Hyperlipidemia, unspecified; I73.9 Peripheral vascular disease, unspecified; R47.1 Dysarthria and anarthria; R13.10 Dysphagia, unspecified; K90.9 Intestinal malabsorption, unspecified; R41.4 Neurologic neglect syndrome; N40.0 Benign prostatic hyperplasia without lower urinary tract symptoms; R47.01 Aphasia; D64.9 Anemia, unspecified; E11.51 Type 2 diabetes mellitus with diabetic peripheral angiopathy without gangrene; E78.00 Pure hypercholesterolemia, unspecified; F17.210 Nicotine dependence, cigarettes, uncomplicated; I10 Essential (primary) hypertension; I69.351 Hemiplegia and hemiparesis following cerebral infarction affecting right dominant side; Z98.2 Presence of cerebrospinal fluid drainage device; Z79.82 Long term (current) use of aspirin; Z79.899 Other long term (current) drug therapy
CPT/HCPCS: 31500; 36415; 36569; 36600; 70450; 70496; 71045; 74018; 76705; 76937; 80048; 80053; 80061; 80185; 80305; 81003; 82375; 82805; 82962; 84145; 84443; 84478; 85025; 85610; 87040; 87070; 92523; 92610; 93005; 93970; 93971; 94003; 94640; 96374; 96375; 97162; 97166; 97530; 99285; C1725; C9113; J0330; J0360; J0692; J1100; J1165; J1815; J2270; J2704; J3490; J7050; J7060; J7121; J7620; J7626; Q9967; A4315